=== PATIENT | male | born 1975 | race Caucasian/White ===

== ENCOUNTER → 2019-12-15 16:53 | Outpatient (CLI) | payer BC, SELFPAY ==
[2019-12-17 09:02] LABS: Covid-19 Nasal PCR Sendout UK NOT DETECTED
== END ==
PROVIDERS: PCP Internal Medicine Adolescent Medicine; Visit Provider Internal Medicine Adolescent Medicine
DX: Z03.818 Encounter for observation for suspected exposure to other biological agents ruled out (principal)
CPT/HCPCS: 87581; 87633; 87798; U0003

== ENCOUNTER 2020-03-02 13:59 | Emergency (ER) | payer BC, SELFPAY ==
[2020-03-02 14:32] VITALS: BP 122/77; PULSE 100; RESP 16; TEMP 36.8; O2SAT 100; BMI 34.4
--- NOTE | 2020-03-02 14:55 | HMH.EDUTC ---
[facility] [place] Disposition Clinical Impression: Nausea vomiting and diarrhea Disposition: Home, Self-Care Condition on Discharge: Good Instructions: Diarrhea, DI for Vomiting -- Adult, Nausea and Vomiting-Adult, DI for COVID-19 (Suspected or Confirmed ), Coronavirus Disease 2019 Additional Instructions: ? Avoid fruit juices, as these do not replace minerals and can actually increase diarrhea. ? Children and adults can use sports drinks to replenish electrolytes. Younger children and infants should use products formulated for children, like oral rehydration solutions. ? Eat food in small amounts and let your stomach recover. ? Get lots of rest. You may feel tired or weak. ? No greasy or fried foods for the next 24-48 hours BRAT diet Bananas Rice Apples and [place] ? Make sure to drink plenty of liquids ? Return if needed ? Straight to ER if any life threatening symptoms ? Zofran as prescribed ? You was given an outpatient order for diarrhea panel, please collect specimen and bring back to outpatient lab then call back to the [facility] or follow up with family doctor for results ? Follow up with family doctor in the next 48-72 hours if no improvement or any worsening of symptoms You were tested for today for COVID19 your test result should be back in the next 24-48 hours, you may call to the [facility] to see if your test results are back in the next 48 hours [phone] [facility] hours are 9am-9pm You was given a handout with instructions for Self Quarantine and Self isolation for while you wait on test results and what to do if they are positive If you are positive the Health Dept will be contacting you also Prescriptions: Dicyclomine HCl [Bentyl 10mg capsule] 10 mg PO TID PRN #15 cap PRN Reason: Cramping Transmission Status: Pending to [id number] Ondansetron [Zofran 4mg ODT] 4 mg PO TIDP PRN #20 tab PRN Reason: Vomiting Transmission Status: Pending to [id number] Referrals: Stephan Robert MD [Primary Care Provider] - As needed Time of Disposition: 15:27 Medical Decision Making - Donta Inquiry Pt receiving controlled substance: No Donta was queried for this patient: No Vital Signs: 03/02/20 14:32 Temperature 98.2 F Temperature Source Oral Pulse Rate [Right] 100 H Respiratory Rate 16 Blood Pressure [Right Arm] 122/77 Blood Pressure Mean [Right Arm] 92 Blood Pressure Source [Right Arm] Automatic Cuff Blood Pressure Position [Right Arm] Sitting 02 Sat by Pulse Oximetry 100 Oxygen Delivery Method Room Air Orders (Tests/Meds): ED MEDICATIONS Discontinued Medications Generic Name Dose Route Start Last Admin Trade Name Ira PRN Reason Stop Dose Admin Dicyclomine HCl 10 mg 03/02/20 14:56 03/02/20 15:12 Dicyclomine 10mg Capsule PO 03/02/20 14:57 10 mg ONCE ONE Administration Ondansetron HCl 4 mg 03/02/20 14:56 03/02/20 15:12 Ondansetron 4mg Odt SL 03/02/20 14:57 4 mg ONCE ONE Administration ORDERS Category Date Time Status Covid-19 Nasal PCR ([facility]) Routine Lab 03/02/20 14:16 Received Medical Decision Narrative: Patient states that he is feeling much better after medication, no more N/V and stomach no longer cramping [facility] [place] HPI - General Stated complaint: diarrhea,weakness Time Seen by Provider: 03/02/20 14:56 Mode of Arrival: Ambulatory Source of Information: Patient Limitations: No Limitations Description of Symptoms (Recalled from Triage Doc. by RN): Pt c/o diarrhea and dry heaving this morning with sore throat and headache HEENT Symptoms (Recalled from RN notes): No Resp Symptoms (Recalled from RN notes): No Skin Symptoms (Recalled from RN notes): No MS Symptoms (Recalled from RN notes): No Functional Status (Recalled from RN notes): nA - History of Present Illness Provider Complaint: Patient states that he woke up this morning and was not feeling well States that he has been having nausea, vomiting and diarrhea along with sore throat State that he has had multipl
[2020-03-02 15:40] VITALS: BP 124/74; PULSE 98; RESP 16; TEMP 36.8; O2SAT 98
== END 2020-03-02 15:41 | disposition home or self-care (01) ==
PROVIDERS: Emergency Provider Nurse Practitioner; PCP Internal Medicine Adolescent Medicine
DX: Z20.822 Contact with and (suspected) exposure to COVID-19 (principal); R11.2 Nausea with vomiting, unspecified; R53.1 Weakness
CPT/HCPCS: 99202; G0463; U0003

== ENCOUNTER → 2020-03-22 12:21 | Outpatient (CLI) | payer BC, SELFPAY ==
[2020-03-22 13:52] LABS: Chloride 102 mmol/L (98-107)
[2020-03-22 13:53] LABS: Potassium 4.3 mmoL/L (3.5-5.1); Sodium 138 mmol/L (136-145)
[2020-03-22 13:55] LABS: Alanine Aminotransferase 20 U/L (12-78); Aspartate Amino Transferase 25 U/L (17-59); Blood Urea Nitrogen 15 mg/dl (9-20); Estimated Glomerular Filt Rate 72 ml/min (>60); GFR (African American) 87 ML/MIN (>60)
[2020-03-22 13:56] LABS: Albumin Level 4.7 g/dl (3.5-5.0); Albumin/Globulin Ratio 1.4 (1.1-1.8); Alkaline Phosphatase 76 U/L (38-126); Anion Gap 11.3 mEq/L (5-15); Bilirubin,Total 0.5 mg/dl (0.2-1.3); Calcium 10.1 mg/dl (8.4-10.2); Carbon Dioxide 29 mmol/L (22.0-30.0); Chol/HDL Ratio 4.4 (1-3.5); Cholesterol 190 mg/dl (140-200); Globulin 3.4 g/dL (1.3-3.2); Glucose 108 mg/dl (74-100); HDL Cholesterol 43 mg/dl (40-60); Total Protein,Serum 8.1 g/dl (6.3-8.2); Triglycerides 107 mg/dl (30-150); VLDL Cholesterol 21 mg/dL (0-40)
[2020-03-22 14:07] LABS: Direct LDL Cholesterol 107.72 mg/dL (100-129)
[2020-03-22 14:27] LABS: Thyroid Stimulating Hormone 1.81 uIU/mL (0.465-4.68)
[2020-03-22 16:03] LABS: Hemoglobin A1C 5.8 % (4.0-6.0)
[2020-03-23 11:18] LABS: Covid-19 Nasal PCR Sendout P&C Negative
== END ==
PROVIDERS: Nurse Practitioner Family; PCP Internal Medicine Adolescent Medicine; Visit Provider Nurse Practitioner Family
DX: Z20.828 Contact with and (suspected) exposure to other viral communicable diseases (principal); R73.9 Hyperglycemia, unspecified; I10 Essential (primary) hypertension; E03.9 Hypothyroidism, unspecified
CPT/HCPCS: 36415; 80053; 80061; 83036; 84443; U0004

== ENCOUNTER 2021-02-24 23:36 | Emergency (ER) | payer BC, SELFPAY ==
[2021-02-24 23:38] VITALS: BP 112/78; PULSE 101; RESP 17; TEMP 37.3; O2SAT 96; BMI 36.9
--- NOTE | 2021-02-25 00:27 | CT_ITS ---
PROCEDURE INFORMATION: Exam: CT Abdomen And Pelvis With Contrast Exam date and time: 02/25/2021 12:27 AM Age: 45 years old Clinical indication: Vomiting and other: Diarrhea; Additional info: Abd pain, n/v/d TECHNIQUE: Imaging protocol: Computed tomography of the abdomen and pelvis with contrast. Radiation optimization: All CT scans at this facility use at least one of these dose optimization techniques: automated exposure control; mA and/or kV adjustment per patient size (includes targeted exams where dose is matched to clinical indication); or iterative reconstruction. Contrast material: ISOVUE; Contrast volume: 75 ml; Contrast route: IV; COMPARISON: ABDPELW/O CT ABD PELVIS W/O CONTRAST 04/19/2015 4:10 PM FINDINGS: Lungs: Lung bases are clear. Pleural spaces: No pleural effusion. Heart: The visualized heart is normal. No pericardial effusion. Liver: The liver has normal size and contour. Gallbladder and bile ducts: The gallbladder is unremarkable. No biliary ductal dilatation. Pancreas: The pancreas is unremarkable. Spleen: The spleen is unremarkable. Adrenal glands: The adrenal glands are normal. Kidneys and ureters: The kidneys enhance symmetrically without hydronephrosis. Multiple stones within the left kidney largest measuring up to 5 mm. The ureters have normal course and caliber without stone. Stomach and bowel: The stomach is normal. The small bowel has normal course and caliber. There is scattered colonic diverticula without significant wall thickening or pericolonic inflammatory stranding. Appendix: The appendix is normal. Intraperitoneal space: Small volume of simple appearing fluid within the pelvis. No free air. Vasculature: Atherosclerotic calcifications of the aorta and major branches. No abdominal aortic aneurysm. Lymph nodes: No enlarged lymph nodes. Urinary bladder: Urinary bladder is decompressed and not well evaluated. Reproductive: Unremarkable as visualized. Bones/joints: No acute fracture. Soft tissues: Fat containing left inguinal hernia. IMPRESSION: 1. Simple appearing fluid along loops of the ileum may represent component of enteritis. Diagnostic consideration includes early acute uncomplicated diverticulitis, this is felt less likely given lack of significant pericolonic inflammatory change. 2. The appendix is normal. 3. Other findings as above.
[2021-02-25 00:38] LABS: Basophils # 0.3 K/mm3 (0-0.2); Basophils % 2.1 % (0.1-2.0); Eosinophils # 0.2 K/mm3 (0.0-0.4); Eosinophils % 1.1 % (0.1-12.0); Hematocrit 47.4 % (42.0-52.0); Hemoglobin 15.2 g/dL (14.1-18.0); Lymphocytes # 1.2 K/mm3 (0.7-4.5); Mean Corpuscular Hemoglobin 29.9 pg (27.0-31.2); Mean Corpuscular Volume 93.2 fl (80-94); Mean Platelet Volume 7.5 fl (7.4-10.4); Monocytes # 0.7 K/mm3 (0.1-1.0); Monocytes % 5.3 % (1.7-9.3); Neutrophils # 11.4 K/mm3 (1.8-7.8); Neutrophils % 82.5 % (37.0-80.0); Platelet Count 277 K/mm3 (142-424); Red Blood Count 5.08 M/mm3 (4.60-6.20); Red Cell Distribution Width 13.1 % (11.5-17.5); White Blood Count 13.8 K/mm3 (4.8-10.8)
[2021-02-25 00:45] LABS: Alanine Aminotransferase 24 U/L (12-78); Albumin Level 4.4 g/dl (3.5-5.0); Albumin/Globulin Ratio 1.4 (1.1-1.8); Alkaline Phosphatase 66 U/L (38-126); Amylase 86 U/L (30-110); Anion Gap 12.9 mEq/L (5-15); Aspartate Amino Transferase 29 U/L (17-59); Bilirubin,Total 0.6 mg/dl (0.2-1.3); Blood Urea Nitrogen 20 mg/dl (9-20); Calcium 9.8 mg/dl (8.4-10.2); Carbon Dioxide 27 mmol/L (22.0-30.0); Chloride 100 mmol/L (98-107); Creatinine Clearance Estimated 133 mL/min (50-200); Estimated Glomerular Filt Rate 72 ml/min (>60); GFR (African American) 87 ML/MIN (>60); Globulin 3.1 g/dL (1.3-3.2); Glucose 128 mg/dl (74-100); Lipase 85 U/L (23-300); Potassium 3.9 mmoL/L (3.5-5.1); Sodium 136 mmol/L (136-145); Total Protein,Serum 7.5 g/dl (6.3-8.2)
--- NOTE | 2021-02-25 00:50 | HMH.EDNVD ---
ED Disposition Clinical Impression: Enteritis Disposition: Home, Self-Care Condition on Discharge: Good Instructions: DI for Enteritis Additional Instructions: fluids and call pcp for follow up Referrals: Stephan Robert MD [Primary Care Provider] - - Critical Care Critical Care Time: No Attestation: On 02/24/21, the high probability of a clinically significant, sudden or life threatening deterioration of the following system(s) required my full and direct attention, intervention and personal management. The time I documented below is in addition to time spent performing reported procedures but includes the following listed in this critical care notation. Medical Decision Making - Medical Records Medical records reviewed: Yes: I reviewed the patient's medical records. - Donta Inquiry Pt receiving controlled substance: No Vital Signs: 02/24/21 23:38 Temperature 99.2 F Temperature Source Oral Pulse Rate [Right] 101 H Respiratory Rate 17 Blood Pressure [Right Arm] 112/78 Blood Pressure Mean [Right Arm] 89 Blood Pressure Source [Right Arm] Manual Cuff/ Auscultation 02 Sat by Pulse Oximetry 96 Oxygen Delivery Method Room Air - Lab Data Lab results reviewed: Yes: I reviewed the patient's lab results. Lab Results 02/25/21 00:09: WBC 13.8 H, RBC 5.08, Hgb 15.2, Hct 47.4, MCV 93.2, MCH 29.9, MCHC 32.0, RDW 13.1, Plt Count 277, MPV 7.5, Neut % (Auto) 82.5 H, Lymph % (Auto) 9.0 L, [place] % (Auto) 5.3, Eos % (Auto) 1.1, Baso % (Auto) 2.1 H, Neut # (Auto) 11.4 H, Lymph # (Auto) 1.2, [place] # (Auto) 0.7, Eos # (Auto) 0.2, Baso # (Auto) 0.3 H, ESR 17 H 02/25/21 00:09: Sodium 136, Potassium 3.9, Chloride 100, Carbon Dioxide 27, Anion Gap 12.9, BUN 20, Creatinine 1.10, Estimated Creat Clear 133, Estimated GFR 72, Est GFR ( Amer) 87, Glucose 128 H, Calcium 9.8, Total Bilirubin 0.6, AST 29, ALT 24, Alkaline Phosphatase 66, C-Reactive Protein 36.8 H, Total Protein 7.5, Albumin 4.4, Globulin 3.1, Albumin/Globulin Ratio 1.4, Amylase 86, Lipase 85, Procalcitonin 0.130 02/25/21 00:50: Urine Color Yellow, Urine Appearance Clear, Urine pH 6.0, Ur Specific [place] >= 1.030, Urine Protein Negative, Urine Glucose (UA) Negative, Urine Ketones Negative, Urine Blood Trace-i, Urine Nitrate Negative, Urine Bilirubin Negative, Urine Urobilinogen 0.2, Ur Leukocyte Esterase Negative, Urine RBC 3-5, Amorphous Sediment Trace, Urine Mucus 4+ 02/25/21 01:15: Group A Strep Rapid Negative Result diagrams: 02/25/21 00:09 02/25/21 00:09 Orders (Tests/Meds): ED MEDICATIONS Generic Name Dose Route Start Last Admin Trade Name Freq PRN Reason Stop Dose Admin Sodium Chloride 1,000 mls @ 999 mls/hr 02/25/21 00:30 02/25/21 01:57 Sod Chlor 0.9% 1000ml Bag IV 02/25/21 01:30 999 mls/hr .Q1H1M SHERWIN Administration Sodium Chloride 8 ml 02/25/21 00:27 Sodium Chloride 0.9% 10ml Vial IV 03/27/21 00:26 NEEDED PRN dilute pepcid Discontinued Medications Generic Name Dose Route Start Last Admin Trade Name Freq PRN Reason Stop Dose Admin Famotidine 20 mg 02/25/21 00:27 02/25/21 01:44 Famotidine 20mg/2ml Vial IV 02/25/21 00:28 20 mg ONCE ONE Administration Iopamidol 75 ml 02/25/21 01:02 02/25/21 01:03 Iopamidol-370 (76%);100ml Bottle IV 02/25/21 01:03 75 ml ONCE ONE Administration Ketorolac Tromethamine 30 mg 02/25/21 00:27 02/25/21 01:44 Ketorolac 30mg/Ml Vial IV 02/25/21 00:28 30 mg ONCE ONE Administration Metoclopramide HCl 10 mg 02/25/21 00:27 02/25/21 01:44 Metoclopramide Hcl 10mg/2ml Vial IVP 02/25/21 00:28 10 mg ONCE ONE Administration Ondansetron HCl 4 mg 02/25/21 00:27 02/25/21 01:44 Ondansetron 4mg/2ml Vial IV 02/25/21 00:28 4 mg ONCE ONE Administration Sodium Chloride 10 ml 02/25/21 01:02 02/25/21 01:03 Sodium Chloride 0.9% 10ml Syr (Rad Only) IV 02/25/21 01:03 10 ml ONCE ONE Administration ORDERS Category Date Time Status Rapi
[2021-02-25 00:51] LABS: C-Reactive Protein 36.8 mg/L (0-4)
[2021-02-25 01:11] LABS: Erythrocyte Sedimentation Rate 17 mm/hr (0-15)
[2021-02-25 01:23] LABS: Microscopic, Urine URINE MICROSCOPIC (MICROSCOPIC)
[2021-02-25 01:47] LABS: Coronavirus 19, PCR Not Detected (NotDetected); Influenza A, PCR Not Detected (NotDetected); Influenza B, PCR Not Detected (NotDetected)
[2021-02-25 02:12] LABS: Appearance,Urine CLEAR (Clear); Bilirubin,Urine Negative (Negative); Blood, Urine TRACE-I (Negative); Color,Urine YELLOW (Yellow); Glucose,Urine (UA) Negative (Negative); Ketones,Urine Negative (Negative); Leukocyte Esterase,Urine Negative (Negative); Nitrate,Urine Negative (Negative); Protein,Urine Negative (Negative); Specific Gravity, Urine >= 1.030 (1.005-1.030); Urobilinogen,Urine 0.2 EU/dl (0.2)
[2021-02-25 02:12] LABS: Strep Scrn Group A (Rapid) Negative (Negative)
[2021-02-25 02:17] LABS: Amorphous Sediment,Urine Trace /lpf; Mucus,Urine 4+ /lpf
[2021-02-25 02:36] VITALS: BP 132/78; PULSE 78; RESP 18; TEMP 36.8; O2SAT 95
== END 2021-02-25 02:57 | disposition home or self-care (01) ==
PROVIDERS: Emergency Provider Emergency Medicine; PCP Internal Medicine Adolescent Medicine
DX: K52.9 Noninfective gastroenteritis and colitis, unspecified (principal); Z20.822 Contact with and (suspected) exposure to COVID-19
CPT/HCPCS: 74177; 80053; 81001; 82150; 83690; 84145; 85025; 85651; 86140; 87430; 96365; 96375; 99283; C9803; J2405; Q9967; U0003; U0005

== ENCOUNTER → 2021-04-24 07:28 | Outpatient (CLI) | payer BC, SELFPAY ==
[2021-04-24 08:36] LABS: Basophils # 0.1 K/mm3 (0-0.2); Eosinophils # 0.2 K/mm3 (0.0-0.4); Eosinophils % 2.6 % (0.1-12.0); Hematocrit 44.4 % (42.0-52.0); Hemoglobin 14.7 g/dL (14.1-18.0); Lymphocytes # 2.3 K/mm3 (0.7-4.5); Lymphocytes % 30.1 % (10-50); Mean Corpuscular Hemoglobin 30.3 pg (27.0-31.2); Mean Corpuscular Volume 91.6 fl (80-94); Mean Platelet Volume 7.6 fl (7.4-10.4); Monocytes # 0.6 K/mm3 (0.1-1.0); Monocytes % 7.3 % (1.7-9.3); Neutrophils # 4.6 K/mm3 (1.8-7.8); Platelet Count 271 K/mm3 (142-424); Red Blood Count 4.85 M/mm3 (4.60-6.20); Red Cell Distribution Width 13.1 % (11.5-17.5); White Blood Count 7.8 K/mm3 (4.8-10.8)
[2021-04-24 08:40] LABS: Hemoglobin A1C 5.7 % (4.0-6.0)
[2021-04-24 09:20] LABS: Alanine Aminotransferase 27 U/L (12-78); Albumin Level 4.4 g/dl (3.5-5.0); Albumin/Globulin Ratio 1.6 (1.1-1.8); Alkaline Phosphatase 54 U/L (38-126); Anion Gap 9.4 mEq/L (5-15); Aspartate Amino Transferase 29 U/L (17-59); Bilirubin,Total 0.4 mg/dl (0.2-1.3); Blood Urea Nitrogen 15 mg/dl (9-20); Calcium 8.9 mg/dl (8.4-10.2); Carbon Dioxide 29 mmol/L (22.0-30.0); Chloride 104 mmol/L (98-107); Cholesterol 162 mg/dl (140-200); Estimated Glomerular Filt Rate 80 ml/min (>60); GFR (African American) 97 ML/MIN (>60); Globulin 2.7 g/dL (1.3-3.2); Glucose 110 mg/dl (74-100); HDL Cholesterol 41 mg/dl (40-60); Potassium 4.4 mmoL/L (3.5-5.1); Sodium 138 mmol/L (136-145); Total Protein,Serum 7.1 g/dl (6.3-8.2); Triglycerides 73 mg/dl (30-150); VLDL Cholesterol 15 mg/dL (0-40)
[2021-04-24 09:31] LABS: Direct LDL Cholesterol 100.11 mg/dL (100-129)
[2021-04-24 09:34] LABS: Triiodothryronine (T3) Uptake 35 % (23.5-40.5)
[2021-04-24 09:35] LABS: Free Thyroxine Index 2.6 ug/dL (5.93-13.13); T4 (Thyroxine) 7.5 ug/dl (5.53-11.0)
[2021-04-24 09:37] LABS: 25-OH Vitamin D, Total 32.7 ng/mL (30-100)
[2021-04-24 09:48] LABS: Thyroid Stimulating Hormone 2.87 uIU/mL (0.465-4.68)
[2021-04-24 10:08] LABS: Vitamin B12 525 pg/mL (239-931)
== END ==
PROVIDERS: Visit Provider Internal Medicine Adolescent Medicine
DX: E66.9 Obesity, unspecified (principal); E55.9 Vitamin D deficiency, unspecified; Z13.1 Encounter for screening for diabetes mellitus; Z79.899 Other long term (current) drug therapy
CPT/HCPCS: 36415; 80053; 80061; 82306; 82607; 83036; 84436; 84443; 84479; 85025

== ENCOUNTER 2021-06-21 08:46 | Day surgery (SDC) | payer BC, SELFPAY ==
[2021-06-19 13:22] VITALS: BMI 31.8
[2021-06-21 08:58] LABS: Coronavirus 19, PCR Not Detected (NotDetected); Influenza A, PCR Not Detected (NotDetected); Influenza B, PCR Not Detected (NotDetected)
[2021-06-21 09:51] VITALS: BP 127/90; PULSE 66; RESP 16; TEMP 36.7; O2SAT 99
[2021-06-21 10:40] VITALS: O2SAT 98
--- NOTE | 2021-06-21 11:19 | HMH.SCOPE ---
- Procedure: Date: 06/21/21 Patient Date of :: 1975 Procedure Performed:: Total colonoscopy to terminal ileum with polypectomy by snare Indications:: Patient is a 45-year-old male. He states that he received a letter from his insurance company stating he should undergo screening colonoscopy. Consideration was being given for possible Cologuard. However, the patient's mother did have a history of breast cancer. Given the family history of cancer he was referred for colonoscopy. Performing Provider:: Blayne Porter MD Referring Provider:: Stephan Robert MD Sedation:: MAC sedation Procedure:: Patient was taken to same-day surgery endoscopy procedure room. He was positioned in lateral decubitus position. Adequate intravenous sedation was achieved with anesthesia titration of propofol. Variable stiffness Olympus colonoscope was inserted through the anus. Is advanced to the cecum. Ileocecal valve and appendiceal orifice were clearly identified. Colonic preparation was good. Colonoscope was advanced short distance into the terminal ileum which appeared grossly normal. Colonoscope was slowly withdrawn through the colon with careful surveillance. There was a tiny 2 to 3 mm polyp in the ascending colon removed with cold cutting snare. Colonoscope was withdrawn through the remainder of the colon. Retroflexion within the rectum revealed no evidence of any pathologic internal hemorrhoids. Colonoscope was withdrawn. Findings:: Small 2 to 3 mm ascending colon polyp Recommendations:: Likely repeat colonoscopy 5 years Complications:: None immediately apparent Estimated blood obtained (mL): 1
[2021-06-21 11:20] VITALS: BP 91/59; PULSE 66; RESP 16; TEMP 36.6; O2SAT 94
--- NOTE | 2021-06-21 11:24 | HMH.ANESCL ---
[facility] Anesthesia Checklist - Structural Data Admitted From: Home Planned Operative Procedure/s: colonoscopy Consent for Planned Operative Procedure(s) Verified: Yes - Airway Assessment C-Spine Mobility Assessed: Yes TMJ Mobility Assessed: Yes Dentition: Good Dentition - Neurological Assessment Level of Consciousness: Awake, Alert, Appropriate - Anesthesia Plan Anesthesia Risk discussed: Yes Anesthesia Plan: Verified ASA Class: II Anesthesia Type: MAC [facility] History I have reviewed the patient's past medical history: Yes Medical History: Denies:: Cancer, Diabetes Mellitus Type 1, Diabetes Mellitus Type 2, Internal Pacemaker, MRSA, Seizures *Have you ever received a pneumonia vaccine?: No *Have you received a flu vaccine this season?: No Anesthesia experience/problems:: none Laterality Cases: Bilateral: Tonsillectomy Other Surgeries: No: Pacemaker Amputation: No - *Social History Last grade of school completed: Some college Smoking Status: Never smoker Alcohol Intake: never Substance Use Type: denies use *Occupational Status:: employed Housing: house Household Members: spouse *Travel in the last 8 weeks: Inside the [facility] Family Hx:: Cancer
[2021-06-21 11:30] VITALS: BP 93/69; PULSE 71; RESP 16; TEMP 36.6; O2SAT 96
[2021-06-21 11:45] VITALS: BP 111/80; PULSE 61; RESP 16; TEMP 36.6; O2SAT 96
== END 2021-06-21 11:45 | disposition home or self-care (01) ==
LOC: OUTP 08:47
PROVIDERS: PCP Internal Medicine Adolescent Medicine; Visit Provider Surgery
PROC: 0DJD8ZZ Inspection of Lower Intestinal Tract, Via Natural or Artificial Opening Endoscopic (ICD-10-PCS; CPT 45385; principal; 2021-06-21 10:30)
DX: Z12.11 Encounter for screening for malignant neoplasm of colon (principal); K63.5 Polyp of colon; Z80.3 Family history of malignant neoplasm of breast; I10 Essential (primary) hypertension; Z79.899 Other long term (current) drug therapy
CPT/HCPCS: 45385; C9803; U0003; U0005